=== PATIENT | male | born 1950 | race Hispanic/Latino ===

== ENCOUNTER 2019-07-13 07:30 | Outpatient (CLI) | payer MEDICARE, OTHER ==
[2019-07-13] MEDS ORDERED: Iopamidol 300 61% 100 ML VIAL FS ONE (09:00)
--- NOTE | 2019-07-13 14:03 | CT ---
Exam: Abdomen CT scan with and without IV contrast: HISTORY: Left adrenal mass, neoplasm, COMPARISON: 07/09/2016, 08/30/2015 FINDINGS: The lung bases are clear. Visualized liver, gallbladder, pancreas, spleen, and visualized kidneys are unremarkable. Small stable 1.3 x 2.1 cm right adrenal adenoma. Small fat-containing umbilical hernia. No abscess or abnormal fluid collection or other acute process. IMPRESSION: Small stable right adrenal adenoma. If there is clinical concern for abnormal growth in the future, a follow-up noncontrast abdomen CT sc an would probably be sufficient to evaluate for any potential change in size.
== END 2019-07-13 07:31 | disposition home or self-care (01) ==
LOC: SCSCT 07:30
PROVIDERS: ATTEND Family Medicine
DX: D35.01 Benign neoplasm of right adrenal gland (principal)
CPT/HCPCS: 74170; Q9967

== ENCOUNTER 2019-10-05 00:31 | Inpatient (IN) | payer MEDICARE, OTHER ==
[2019-10-05] MEDS ORDERED: Famotidine/PF 20 mg/2ml Vial ONE (00:55)
[2019-10-05] MEDS ORDERED: Morphine 10 MG/ML VIAL ONE ×2 (00:55→02:20)
[2019-10-05] MEDS ORDERED: Ondansetron PF 4 MG/2 ML Vial ONE (00:55)
[2019-10-05] MEDS ORDERED: Lidocaine Viscous Sol 2% 15 ml UD Cup ONE (01:02)
[2019-10-05] MEDS ORDERED: Mag-Al Plus 1200 MG/1200 MG/120 MG/30 ML UDCUP ONE (01:02)
[2019-10-05 01:04] LABS: #Basophils 0.1 thou/uL (0.0-0.2); #Lymphocytes 1.7 thou/uL (1.20-3.40); #Monocytes 0.9 thou/uL (0.11-0.59); #Neutrophils 11.3 thou/uL (1.40-6.50); %Basophils 0.4 % (0.0-1.0); %Eosinophils 0.3 % (0.0-10.0); %Lymphocytes 11.9 % (21.0-51.0); %Monocytes 6.1 % (0.0-10.0); %Neutrophils 81.3 % (42.0-75.0); Hemoglobin 17.2 g/dL (14.0-18.0); Mean Corpuscular Hemoglobin 30.6 pg (27.0-31.0); Mean Platelet Volume 7.9 fL (7.4-10.4); Platelet Count 143 thou/uL (130-400); Red Blood Cell (RBC) Count 5.61 mill/uL (4.70-6.10); White Blood Cell (WBC) Count 13.9 thou/uL (4.8-10.8)
[2019-10-05 01:21] LABS: ALT (SGPT) 32 U/L (8-55); AST (SGOT) 38 U/L (5-34); Alkaline Phosphatase 66 U/L (40-110); Anion Gap 18 mmol/L (10-20); BUN (Urea Nitrogen) 30 mg/dL (8.4-25.7); Calcium 10.1 mg/dL (7.8-10.44); Carbon Dioxide 22 mmol/L (23-31); Chloride 104 mmol/L (98-107); Glucose 129 mg/dL (80-115); Lipase 15 U/L (8-78); Sodium 140 mmol/L (136-145)
[2019-10-05 02:08] LABS: Calc. Creatinine Clearance 0 mL/min (70-130); Estimated GFR-MDRD 64
[2019-10-05 04:14] LABS: Troponin I Less than 0.010 ng/mL (< 0.028)
[2019-10-05] MEDS ORDERED: Morphine 2 MG/ML SYRINGE SLOW IVP PRN ×2 (05:11→05:55)
[2019-10-05] MEDS ORDERED: Ondansetron PF 4 MG/2 ML Vial IVP PRN (05:11)
[2019-10-05] MEDS ORDERED: Dextrose 5 %-0.45 % NaCl 1,000 ML IV SCH (05:15)
[2019-10-05] MEDS ORDERED: hydrALAZINE 20 MG/ML VIAL SLOW IVP PRN (05:55)
[2019-10-05] MEDS ORDERED: Potassium Chloride 10 MEQ in Dextrose 5%-Lactated Ringers 1,000 ML IV SCH (05:55)
[2019-10-05 06:24] VITALS: BMI 37.7
--- NOTE | 2019-10-05 07:34 | HP ---
PRESENTING COMPLAINT: Abdominal pain. HISTORY OF PRESENT ILLNESS: Giuseppe Cummins is a 68-year-old male with past medical history of hyperlipidemia, presented with sudden onset of abdominal pain that started last evening after having dinner. The patient states pain was located in the epigastric area and became generalized, crampy. He rates pain at about 9/ 10. He denies any associated nausea or vomiting. He presented to a single-stand emergency room where he was given morphine. He had imaging of the abdomen with finding of partial small bowel obstruction. He was transferred here for observation. The patient states he has been having regular bowel movements. His last bowel movement was 6 hours prior to onset of abdominal pain. The patient states he has started trying to lose weight by starting a new diet 2 days ago. He had eaten salad 4 hours prior to onset of pain. He denies any other related diarrhea or related symptoms. PAST MEDICAL HISTORY: Significant for hyperlipidemia, history of similar abdominal pain 5 years ago, treated conservatively. He had colonoscopy 5 years ago that was unremarkable. ALLERGIES: CEPHALOSPORIN. HOME MEDICATIONS: Include 1. Lipitor. 2. nasal spray. SOCIAL HISTORY: The patient resides in a community. Denies any tobacco, alcohol, or illicit drug use. FAMILY HISTORY: Noncontributory in this elderly male. REVIEW OF SYSTEMS: All systems review x14 were negative. PHYSICAL EXAMINATION: VITAL SIGNS: Current, blood pressure 136/71, pulse of 72, respiratory rate of 18, afebrile at 98.4, O2 saturation 97% on room air. GENERAL: Obese, elderly male, calm, sitting in bed, not in any distress. HEENT: Pupils are equal and reactive to light. Extraocular muscle movements intact, anicteric. NECK: No JVD. No carotid bruit. RESPIRATORY: Good air entry, no crepitation. CARDIOVASCULAR: S1, S2. Rate and rhythm regular. GI: Abdomen obese, but soft. Bowel sounds positive in all 4 quadrants. No area of elicited tenderness. No guarding, no rebound. RECTAL: Deferred. MUSCULOSKELETAL: No pedal edema. No calf tenderness. NEUROLOGIC: Patient is alert and oriented. Cranial nerves 2 through 12 grossly intact. LABORATORY DATA: WBC 13.9, hemoglobin 17, platelet 143, neutrophils 81%. Sodium 140, potassium of 4.0, bicarb 22, creatinine 1.1. AST and ALT normal. Troponin less than 0.01. Lipase and amylase normal. CT of the abdomen, negative for aortic dissection. IMPRESSION: 1. Presumed gastroenteritis. Rule out possible partial bowel obstruction, but less likely given no history of abdominal surgery in the past as well as relatively negative colonoscopy reported 5 years ago. We will admit the patient to observation with gentle IV hydration. We will start the patient on clear liquids and monitor. 2. Hyperlipidemia. Continue patient's home medication of Lipitor. 3. Deep venous thrombosis prophylaxis, subcutaneous heparin. 4. Advance directives discussed with the patient. The patient wishes to be full code. Total time spent in evaluation and discussion of patient greater than 60 minutes. Job ID: [id number] MTDD
--- NOTE | 2019-10-05 07:38 | CT ---
PRELIMINARY REPORT/[facility]/EMERGENCY AFTER HOURS PROCEDURE PROCEDURE INFORMATION: Exam: CT Angiography Chest With Contrast Exam date and time: 10/05/2019 1:44 AM Clinical history: 68 years old, male; Pain and abnormal findings; Abnormal diagnostic tests; Elevated d-dimer; Other: Epigastric pain, low o2 sats; Sternal or substernal pain; Abnormal lab test; Other: Epigastric pain and low o2sats; Abdominal pain; Patient HX: Epigastric pain, n/v, elevated ddimer TECHNIQUE: Imaging protocol: Computed tomographic angiography of the chest with intravenous contrast. 3D rendering: MIP and 3D reconstructed images were created and reviewed. Radiation optimization: All CT scans at this facility use at least one of these dose optimization techniques: automated exposure control; mA and/or kV adjustment per patient size (includes targeted exams where dose is matched to clinical indication); or iterative reconstruction. Contrast material: [id number]; Contrast volume: 95 ml; Contrast route: IV; COMPARISON: No relevant prior studies available. FINDINGS: Pulmonary arteries: Normal. No pulmonary emboli. Aorta: Unremarkable. No aortic aneurysm. No aortic dissection. Lungs: Unremarkable. No consolidation. No masses. Pleural space: Unremarkable. No pneumothorax. No pleural effusion. Heart: Unremarkable. No cardiomegaly. No pericardial effusion. Lymph nodes: Unremarkable. No enlarged lymph nodes. Bones/joints: Unremarkable. No acute fracture. Soft tissues: Unremarkable. IMPRESSION: No acute findings. PROCEDURE INFORMATION: Exam: CT Angiography Abdomen With Contrast Exam date and time: 10/05/2019 1:44 AM Clinical history: 68 years old, male; Pain and abnormal findings; Abnormal diagnostic tests; Elevated d-dimer; Other: Epigastric pain, low o2 sats; Sternal or substernal pain; Abnormal lab test; Other: Epigastric pain and low o2sats; Abdominal pain; Patient HX: Epigastric pain, n/v, elevated ddimer TECHNIQUE: Imaging protocol: Computed tomographic angiography images of the abdomen with intravenous contrast material. 3D rendering: MIP and 3D reconstructed images were created and reviewed. Contrast material: [id number]; Contrast volume: 95 ml; Contrast route: IV; COMPARISON: No relevant prior studies available. FINDINGS: VASCULATURE: Aorta: No aortic aneurysm. No aortic dissection. Mild atherosclerotic disease of the distal abdominal aorta. Atherosclerotic disease of the visualized iliac arteries. Celiac trunk and mesenteric arteries: No occlusion or significant stenosis. Renal arteries: No occlusion or significant stenosis. ABDOMEN: Liver: Normal. No mass. Gallbladder and bile ducts: Normal. No calcified stones. No ductal dilation. Pancreas: Normal. No ductal dilation. Spleen: Normal. No splenomegaly. Adrenals: Normal. No mass. Kidneys and ureters: Normal. No hydronephrosis. Stomach and bowel: 2.5 cm gas and fluid containing duodenal diverticulum. Colonic diverticulosis. Several loops of minimally dilated, gas and fluid-filled mid and distal small bowel, with apparent transition to normal caliber small bowel in the right lower quadrant. Lymph nodes: Unremarkable. No enlarged lymph nodes. Intraperitoneal space: Unremarkable. No free air. No significant fluid collection. Bones/joints: Unremarkable. No acute fracture. No dislocation. Soft tissues: Unremarkable. IMPRESSION: 1. Several loops of minimally dilated, gas and fluid-filled mid and distal small bowel, with apparent transition to normal caliber small bowel in the right lower quadrant. Findings most compatible with partial or early complete small bowel obstruction. 2. Additional findings as described above. Thank you for allowing us to participate in the care of your patient. Dictated and Authenticated by: Leoncio Ennis MD 10/05/2019 3:18 AM Central Time ([place] & [place]) FINAL REPORT CT ARTERIOGRAM CHEST WITH IV CONTRAST AND 3D IMAGING CT ARTERIOGRAM ABDOMEN WITH IV CONTRAST AND 3D IMAGIN10/05/2019 performed on emergency basis at 0242 hours HISTORY: Chest and abdomen pain with radiation to the back. FINDINGS: Agree with the preliminary report by Dr. Enins from [facility]. No evidence of aort ic dissection, aneurysm, or rupture. No evidence of pulmonary embolus. Small right adrenal adenoma is stable. Mildly distended gas-filled loops of small bowel within the mid abdomen are similar in pavan earance to the prior study with gentle transition to a decompressed distal ileum. The duodenum and proximal jejunum are also decompressed. Possible partial or intermittent distal small bowel obstructi on. Diverticulum of second portion the duodenum is also apparent. Code QA. Transcribed Date/Time: 10/05/2019 7:53 AM
--- NOTE | 2019-10-05 07:40 | RAD ---
XR Abdomen 2 View/1 View Cxr History: Epigastric pain Comparison: None Findings: Lungs are clear. No pneumothorax or effusion. Cardiac silhouette and mediastinal contours a re within normal limits. Mild increased pericardiophrenic fat. On the upright view there is low-grade distention of small bowel in the right lower quadrant the abdo men which is not air-filled. Mild levoscoliosis lumbar spine. No acute osseous abnormality. Likely bone island intertrochanteric p ortion right femur. Impression: 1. No acute intrathoracic abnormality. 2. Mild fluid-filled loops of small bowel in the right lower quadrant the abdomen may reflect ileus o r obstruction.
--- NOTE | 2019-10-05 08:10 | ULT ---
PRELIMINARY REPORT/[facility]/EMERGENCY AFTER HOURS PROCEDURE: PROCEDURE INFORMATION: Exam: US Abdomen Complete Exam date and time: 10/05/2019 1:56 AM Clinical history: 68 years old, male; Nausea and vomiting; Abdominal pain; Epigastric TECHNIQUE: Imaging protocol: Real-time ultrasound of the abdomen with image documentation. COMPARISON: No relevant prior studies available. FINDINGS: Liver: Normal. No mass. Gallbladder: Gallbladder is mildly distended. Sonographic Orozco sign was reportedly negative. Gallbladder wall measures 3 mm in thickness. Common bile duct: Common bile duct measures 4 mm in diameter. Pancreas: Pancreas not visualized secondary to overlying bowel gas. Right kidney: Right kidney is normal in echogenicity and measures 11.7 cm in length. Left kidney: Normal. No mass. No hydronephrosis. Spleen: Normal. No splenomegaly. Aorta: Visualized abdominal aorta appears unremarkable. Inferior vena cava: Normal. Portal venous: Main portal vein is widely patent, measuring 12 mm in diameter. IMPRESSION: 1. No sonographic evidence of acute right upper abdominal abnormality. 2. Mildly distended gallbladder, without gallstones or gallbladder wall thickening. No biliary dilati on. Thank you for allowing us to participate in the care of your patient. Dictated and Authenticated by: Leoncio Ennis MD 10/05/2019 2:34 AM Central Time ([place] & [place]) FINAL REPORT RIGHT UPPER QUADRANT ULTRASOUND: COMPARISON: 08/19/15. HISTORY: Epigastric pain. FINDINGS/IMPRESSION: This report is in agreement with the preliminary report by Brian. Mild gallbladder distention. No sono graphic evidence of cholelithiasis or cholecystitis. Negative Orozco's sign is reported. POS: OFF
[2019-10-05] MEDS: Heparin 5,000 UNITS/ML VIAL SC SCH ×3 (08:31→21:09)
[2019-10-05] MEDS ORDERED: Famotidine/PF 20 mg/2ml Vial SLOW IVP SCH (09:00)
--- NOTE | 2019-10-05 11:43 | CON ---
DATE OF CONSULTATION: 10/05/2019 REQUESTING PHYSICIAN: Reji Alfaro MD HISTORY OF PRESENT ILLNESS: Mr. Chin is a 68-year-old man, who presented to the emergency department after midnight last night with complaint of insidious onset severe epigastric abdominal pain, which started approximately 2 hours after dinner consisting of tacos. The pain was described as sharp without any radiation. Pain was associated with 1 episode of nonbilious emesis. He denies any fevers or chills. Last bowel movement was yesterday approximately 6 hours prior to onset of pain. Last time he passed flatus was an hour ago. He currently denies any abdominal pain, nausea, or vomiting. PAST MEDICAL HISTORY: Pertinent for hyperlipidemia and gastroesophageal reflux disease. PAST SURGICAL HISTORY: He denies any previous abdominal operations. He has had normal colonoscopy 5 years ago. 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 SOCIAL HISTORY: He denies any cigarette smoking, ethanol, or illicit drug abuse. FAMILY HISTORY: Noncontributory for this patient's age. PRE-HOSPITAL MEDICATIONS: Includes atorvastatin 10 mg p.o. daily, celecoxib 200 mg p.o. daily, Zyrtec 10 mg p.o. daily and pantoprazole 20 mg p.o. daily. ALLERGIES: CEPHALOSPORINS. REVIEW OF SYSTEMS: 10-point review of systems essentially unremarkable except as stated in past medical history and chief complaint. PHYSICAL EXAMINATION: GENERAL: This reveals a 68-year-old normally developed man, who is otherwise coherent, interactive and appears stated age. The patient is alert and oriented x3, appears to be in no acute distress at the time of my evaluation. VITAL SIGNS: Include blood pressure 143/77, pulse 80, respiratory rate is 20, temperature 99.1 degrees Fahrenheit, and oxygen saturation is 94% on room air. HEENT: Reveals normocephalic and atraumatic. HEART: Reveals regular rate and rhythm. No murmurs or gallops auscultated. LUNGS: Clear to auscultation bilaterally. His breathing is regular and nonlabored. ABDOMEN: Soft, nontender, nondistended. Bowel sounds in all 4 quadrants appear normoactive. He has no peritoneal signs on examination. Liver and spleen are nonpalpable below costal margins. NEUROLOGIC: Reveals no focal deficits present. LABORATORY FINDINGS: Include a CBC with 13,900 white blood cells, hemoglobin and hematocrit 17.2 and 50.5 respectively. Platelet count is 143,000 and normal. Metabolic profile; sodium 140, potassium 4.0, chloride is 104, bicarb is 22, BUN 13, creatinine is 1.13, glucose 129. Lactic acid normal at 1.0. AST and ALT are normal at 38 and 32 respectively. Serum lipase is normal at 15. IMAGING STUDIES: I have personally reviewed the CT scan of the abdomen and pelvis, which reveals nonspecific gas pattern with distended loops of small bowel. No clear transition zone present. There clearly is gas noted all the way down to rectum. Abdominal ultrasound reveals normal gallbladder devoid of stones. No clinical evidence of acute cholecystitis. IMPRESSION: Acute abdominal pain, now resolved. This is likely secondary to gastroesophageal reflux disease. RECOMMENDATIONS: No acute surgical indication for this patient at this time. I recommend he continue to use his proton pulmonary inhibitors and he is more likely would need to be on this on long-term basis. We will advance his diet. Above findings and recommendation has been discussed with the patient who indicates understanding of the information given. I have answered his questions. Thank you again, Dr. Alfaro, for allowing me the opportunity to participate in the care of this patient. Job ID: [id number]
--- NOTE | 2019-10-06 01:40 | CON ---
DATE OF CONSULTATION: REASON FOR CONSULTATION: Abdominal pain and partial bowel obstruction by CAT scan. HISTORY OF PRESENT ILLNESS: Mr. Chin is a 68-year-old gentleman who came to the emergency room yesterday with acute abdominal pain in the upper abdomen just above the umbilicus with associated severe cramping. He had an episode of vomiting and finally came in because the cramps in the periumbilical area got pretty intense. There, he had some pain medicine, had a CT dissection protocol that showed dilated small bowel with a transition zone in the distal ileum, but not terminal ileum. He was no longer vomiting. NG tube was not placed. He was placed n.p.o., given IV fluids, pain control. Seen by General Surgery, who did not think he had a bowel obstruction and today, he is doing better. The patient reports he has been on a diet the past couple of months as he had gained too much weight. He states about a year ago, he had a similar little bout, but it went away. He had a very similar bout in 2014 for which he came to the emergency room, had a CAT scan with very similar findings. Just prior to that, he had a normal colonoscopy for history of polyps that was normal and right after that, he saw Dr. Aranda in my office and with the abdominal pain having been focused to epigastric, he underwent an EGD and some gallbladder evaluation that was all negative. The patient notes he has really had no episodes like this since then except for the bout that was about a year ago. He notes he does not get cramping or pain typically with eating. He has had no weight loss for which he attributes to the diet. He has had no fever, chills, myalgias, arthralgias, or rashes. He has had no hematochezia, melena, or hematemesis. I have reviewed the CT scan films and the area of transition zone in the ileum as well away from and proximal to the terminal ileum. The right colon appears normal as is the ileocecal valve. PAST MEDICAL HISTORY AND PAST SURGICAL HISTORY: Similar episode 5 years ago as noted above, colonoscopy just before that last episode in summer of 2014 that was normal, EGD in [address] Aranda that was normal, hyperlipidemia. No prior history of abdominal surgeries. MEDICATIONS: Home medications; 1. Protonix. 2. Celebrex. 3. Zyrtec. 4. Lipitor. Medications here; 1. Apresoline p.r.n. 2. Protonix. 3. Subcu heparin t.i.d. FAMILY HISTORY: Negative for inflammatory bowel disease or Crohn's. REVIEW OF SYSTEMS: Negative for dyspnea on exertion, melena, hematochezia, hematemesis, swelling, hernias, dysuria, cough, or shortness of breath. PHYSICAL EXAMINATION: VITAL SIGNS: Temperature 99 on admission and 98.5 now, blood pressure is 122/75, respirations 14, pulse 65. GENERAL: He is resting comfortably in bed. He has started eating. HEENT: His oropharynx is without lesions. NECK: Supple without any nodes. LUNGS: Clear. HEART: Regular rate and rhythm without murmurs. ABDOMEN: Soft and nontender. There is a small umbilical hernia, which is reducible. There is no evidence of inguinal hernias. There is no evidence of defects around the right or left abdomen, lower. There is no rebound. There is no guarding. There is no CVA tenderness. There is no right upper quadrant tenderness. There is no epigastric tenderness. Bowel sounds are positive. EXTREMITIES: No clubbing, cyanosis, or edema. LABORATORY DATA: White count was 13.9 this morning, hemoglobin 17, platelet count 143. Sodium 140, potassium 4, bicarb 22, BUN and creatinine were 30 and 1.13, glucose is 129, AST 38, ALT 32, albumin 5, protein 8, lipase 15. Troponins negative. CAT scan; as noted above; this was a CT dissection scan, I have compared it to his previous scans. Interestingly, he had imaging to follow up on an adrenal adenoma in 06/2019. There was no abnormalities of the bowel or small intestine reported, also by my review. Additionally, he had a CT in 06/2016. Again, that showed no abnormalities there. ASSESSMENT: Mr. Chin is a 68-year-old gentleman, who had, 1. A bout of nausea, vomiting, pain, and cramping. He has had a bowel movement yesterday and he has been passing gas today. He definitely did not have a complete obstruction. The symptoms are gone now and the episode seems to be resolving. He may have had a partial blockage. He may have had a viral illness or gastroenteritis, although he did not have the typical severe diarrhea with that. He did have mild leukocytosis. In an ordinary situation, I would be very aggressive with this, but as he has had a very similar episode and a very similar CT scan 5 years ago, it may be reasonable to consider other abnormalities that can cause this such as a Meckel diverticula or Crohn disease. A neoplasia would be unlikely with the length of time that has gone between these 2 episodes. 2. Prior history of polyps. Last colonoscopy in 04/2015. RECOMMENDATIONS: I think the patient continues to improve, he can go home tomorrow on a low-residue diet. Follow up outpatient setting. I will talk to Dr. Aranda tomorrow and probably reasonable to do his colonoscopy early to see if we can look at the ileal area, ileocecal valve and terminal ileum and make sure we do not see signs of Crohn's and probably reasonable to get a small bowel MRI enterography in a week or two, and if there is some type of persistent abnormality there, consider evaluation for Meckel's that can occasionally cause intermittent partial obstructions. Obviously, if he has worsening symptoms or recurrence, we would need to embark on these while here. I would not recommend a colonoscopy tomorrow based on the fact that he is getting over a partial obstruction. Job ID: [id number]
[2019-10-06 04:59] LABS: Anion Gap 14 mmol/L (10-20); BUN (Urea Nitrogen) 15 mg/dL (8.4-25.7); Calc. Creatinine Clearance 130 mL/min (70-130); Calcium 8.2 mg/dL (7.8-10.44); Carbon Dioxide 23 mmol/L (23-31); Chloride 107 mmol/L (98-107); Estimated GFR-MDRD 85; Glucose 93 mg/dL (80-115); Potassium 4.2 mmol/L (3.5-5.1); Sodium 140 mmol/L (136-145)
[2019-10-06 05:12] LABS: #Eosinphils 0.1 thou/uL (0.0-0.7); #Lymphocytes 1.6 thou/uL (1.20-3.40); #Monocytes 0.4 thou/uL (0.11-0.59); #Neutrophils 2.3 thou/uL (1.40-6.50); %Basophils 0.5 % (0.0-1.0); %Eosinophils 2.1 % (0.0-10.0); %Monocytes 8.2 % (0.0-10.0); %Neutrophils 53.1 % (42.0-75.0); Hemoglobin 14.5 g/dL (14.0-18.0); Mean Corpuscular HGB CONC 34.5 g/dL (32.0-36.0); Mean Corpuscular Hemoglobin 31.7 pg (27.0-31.0); Mean Corpuscular Volume 91.9 fL (78.0-98.0); Mean Platelet Volume 7.3 fL (7.4-10.4); Platelet Count 114 thou/uL (130-400); Platelet Morphology Comment Appears Decreased; RBC Distribution Width 12.4 % (11.5-14.5); Red Blood Cell (RBC) Count 4.58 mill/uL (4.70-6.10); White Blood Cell (WBC) Count 4.3 thou/uL (4.8-10.8)
[2019-10-06 07:40] VITALS: BP 117/69; TEMP 98.1
[2019-10-06] MEDS: Heparin 5,000 UNITS/ML VIAL SC SCH (08:57)
--- NOTE | 2019-10-06 10:25 | PRG ---
DATE OF SERVICE: 10/06/2019 SUBJECTIVE: Mr. Chin is awake and alert this morning. He reports no abdominal pain. He has tolerated general diet yesterday. He has had a bowel movement since yesterday. He is passing flatus. OBJECTIVE: VITAL SIGNS: This morning include blood pressure 117/69, pulse 64, respiratory rate is 20, temperature 98.1 degrees Fahrenheit, which is the maximum temperature in last 24 hours. Oxygen saturation is 96% on room air. HEART: Regular rate and rhythm. LUNGS: Clear to auscultation bilaterally. Breathing, regular and nonlabored. ABDOMEN: Soft, nontender, and nondistended. LABORATORY FINDINGS: Today include CBC with 4300 white blood cells, hemoglobin and hematocrit remained stable at 14.5 and 42.0 respectively, platelet count is 114,000. Metabolic profile; sodium 140, potassium 4.2, chloride is 107, bicarb is 23, BUN is 15, creatinine 0.89, glucose is 93. IMPRESSION: 1. Resolved abdominal pain. 2. Probable gastroesophageal reflux disease. PLAN: There remains no acute surgical indication for this patient at this time. The patient is definitely stable for discharge from surgical perspective. I recommend that he continues daily PPI and follow up with his primary care physician as needed. Job ID: [id number]
--- NOTE | 2019-10-06 19:01 | DIS ---
DATE OF ADMISSION: 10/05/2019 DATE OF DISCHARGE: 10/06/2019 PRIMARY CARE PROVIDER: Dr. Leona Delarosa. DISCHARGE DIAGNOSES: 1. Small-bowel obstruction. 2. Gastroenteritis. 3. Gastroesophageal reflux disease. CONDITION OF PATIENT ON THE DAY OF DISCHARGE: Stable. I assessed Mr. Chin on the day of discharge. He denies any chest pain or shortness of breath. Vital signs are stable. S1 and S2 are heard, regular. Lungs are clear to auscultation bilaterally. CONSULTATIONS DURING THIS HOSPITALIZATION: General Surgery, Dr. Pagan. Gastroenterology, Dr. Huber. 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 Aranda in 2 weeks. DISCHARGE MEDICATIONS: 1. Lipitor 10 mg daily. 2. Celebrex 200 mg daily. 3. Cetirizine 10 mg daily. 4. Protonix dose increased to 40 mg daily. HOSPITAL COURSE: Mr. Chin is a pleasant 68-year-old gentleman, who was admitted to [facility] on 10/05/2019, for small-bowel obstruction and gastroenteritis. He was seen by Gastroenterology and General Surgery [facility]. He was managed conservatively. Bowel obstruction resolved. His Protonix dose has been increased to 40 mg daily. He is being discharged home in a stable condition. He is advised to follow up with his hydraulic chair assembler as outpatient because he may need further investigations to rule out the etiology for intermittent partial bowel obstructions. Many thanks for allowing me to participate in your patient's care. Please feel free to contact me with any questions or concerns. ACTIVITY: Ad carolina. DIET: Heart healthy. DISCHARGE DESTINATION: Home. TIME SPENT: Total amount of time spent coordinating this discharge: 32 minutes. Job ID: [id number] [facility]
== END 2019-10-06 11:15 | disposition home or self-care (01) | DRG 392 ==
LOC: SCSER 00:31 → SURG A 05:01
PROVIDERS: ADMIT Internal Medicine; ATTEND Internal Medicine
DX: K52.9 Noninfective gastroenteritis and colitis, unspecified (principal); K56.600 Partial intestinal obstruction, unspecified as to cause; E78.5 Hyperlipidemia, unspecified; E66.9 Obesity, unspecified; D72.829 Elevated white blood cell count, unspecified; K21.9 Gastro-esophageal reflux disease without esophagitis; Z88.8 Allergy status to other drugs, medicaments and biological substances; Z79.899 Other long term (current) drug therapy; Z68.37 Body mass index [BMI] 37.0-37.9, adult
CPT/HCPCS: 36415; 71275; 72191; 74022; 74175; 76705; 80048; 80053; 83605; 83690; 84484; 85025; 85379; 93005; J1644; J2270; J2405; J3480; J7121; S0028

== ENCOUNTER 2019-10-20 12:01 | Outpatient (CLI) | payer MEDICARE, OTHER ==
[~2019-10-20 12:01] MED LIST: Magnevist 469MG/ML 20 ML VIAL ONE
[2019-10-20] MEDS ORDERED: Sodium Chloride 0.9% 20 ML ONE (13:55)
--- NOTE | 2019-10-20 16:39 | MRI ---
MRI ABDOMEN AND MR ENTEROGRAPHY WITH AND WITHOUT CONTRAST: HISTORY: Epigastric pain with nausea and vomiting. COMPARISON: CTs from 10/05/2019 and 07/09/2016. TECHNIQUE: Multiplanar, multisequence MR images were obtained of the abdomen with and without IV contrast and en terography protocol was performed. Volumen was given for oral contrast. FINDINGS: No significant distention of the small bowel is seen. No thickening of the wall of the small bowel is seen. The terminal ileum is unremarkable. The liver, gallbladder, kidneys, left adrenal gland, spleen and pancreas are unremarkable. The approp riate singletons were not performed to evaluate for signal loss as no out of phase images were perfor med. IMPRESSION: 1. No bowel abnormality. 2. Right adrenal nodule is stable compared to exams dating back to 2016 and likely represents an adre nal adenoma. POS: [facility]
== END 2019-10-20 12:02 | disposition home or self-care (01) ==
LOC: MRI 12:01
PROVIDERS: ATTEND Internal Medicine Gastroenterology
DX: K56.609 Unspecified intestinal obstruction, unspecified as to partial versus complete obstruction (principal); R10.13 Epigastric pain; R11.2 Nausea with vomiting, unspecified; E27.8 Other specified disorders of adrenal gland
CPT/HCPCS: 74183; J1610; A9579

== ENCOUNTER 2019-12-06 07:13 | Outpatient (CLI) | payer MEDICARE, OTHER ==
--- NOTE | 2019-12-06 11:53 | NM ---
NUCLEAR MEDICINE HEPATOBILIARY SCAN: DATE: 12/06/2019 HISTORY: 68-year-old male with epigastric pain TECHNIQUE: Technetium 99m-mebrofenin dose: 5.4 mCi. Fatty meal Ensure: 8 oz. Tc 99- mebrofenin injected IV. Dynamic anterior scintigraphy of abdomen for one hour. Fatty meal admi nistered. Additional dynamic anterior scintigraphy of abdomen. Counts obtained over the gallbladder. Time-activity curve generated. FINDINGS: There is normal uptake and washout of radiopharmaceutical agent at the liver. The gallbladder fills n ormally. Bowel activity is visualized. The gallbladder ejection fraction is normal: 95 % IMPRESSION: Normal.
== END 2019-12-06 07:14 | disposition home or self-care (01) ==
LOC: NM 07:13
PROVIDERS: ATTEND Physician Assistant Medical
DX: R10.13 Epigastric pain (principal)
CPT/HCPCS: 78227; A9537

== ENCOUNTER 2021-02-16 16:30 | Outpatient (CLI) | payer MEDICARE, OTHER | END 2021-02-16 16:31 | disposition home or self-care (01) | LOC: SLEEPLAB 16:30 | PROVIDERS: ATTEND Family Medicine | DX: G47.33 Obstructive sleep apnea (adult) (pediatric) (principal); E66.9 Obesity, unspecified; I63.9 Cerebral infarction, unspecified; R06.83 Snoring; R53.83 Other fatigue | CPT/HCPCS: 95806 ==

== ENCOUNTER 2021-04-10 19:00 | Outpatient (CLI) | payer MEDICARE, OTHER | END 2021-04-10 19:01 | disposition home or self-care (01) | LOC: SLEEPLAB 19:00 | PROVIDERS: ATTEND Family Medicine | DX: G47.33 Obstructive sleep apnea (adult) (pediatric) (principal); G47.10 Hypersomnia, unspecified; E66.9 Obesity, unspecified; G47.31 Primary central sleep apnea; Z68.37 Body mass index [BMI] 37.0-37.9, adult | CPT/HCPCS: 95811 ==